=== PATIENT | male | born 1955 | race Two or more races ===

== ENCOUNTER 2024-06-03 21:17 | Inpatient (IN) | payer MEDICARE, OTHER ==
[~2024-06-03] VITALS: Ht 170.2 cm; Wt 68.9 kg
[~2024-06-03 21:17] MED LIST: ACET325T53 PO; ALBU2.5V7 NEB; AMLO-212 PO; ASCO500C18 PO; CLOP75TA15 PO; DOCU-141 PO; FOLI1TAB94 PO; HYDR-3972 PO; HYDR-894 PO; MAGN400C PO; MELA3CAP2 PO; MULT-1045 PO; NUT.237L36 PO; PANT40TA49 PO; POLY17PO4 PO; PRED-170 PO; SITA50TA PO; TACR0.5C PO
[2024-06-03 21:55] LABS: BASOPHILS # (AUTO) 0.1 K/UL (0.0-0.2); BASOPHILS % (AUTO) 0.9 % (0.0-2.0); EOSINOPHILS # (AUTO) 0.1 K/uL (0.0-0.7); EOSINOPHILS % (AUTO) 0.7 % (0.0-7.0); HEMATOCRIT 32.5 % (36.7-47.1); HEMOGLOBIN 10.5 g/dL (12.5-16.3); LYMPHOCYTES # (AUTO) 0.5 K/uL (0.8-4.8); LYMPHOCYTES % (AUTO) 3.3 % (20.5-51.5); MEAN CORPUSCULAR HEMOGLOBIN 29.5 uug (23.8-33.4); MEAN CORPUSCULAR HGB CONC 32 g/dL (32.5-36.3); MEAN CORPUSCULAR VOLUME 91.2 fL (73.0-96.2); MONOCYTES # (AUTO) 0.3 K/uL (0.1-1.30); NEUTROPHILS # (AUTO) 14.2 K/uL (1.8-8.9); NEUTROPHILS % (AUTO) 93.1 % (38.5-71.5); PLATELET COUNT (AUTO) 123 K/uL (152-348); RED BLOOD CELL COUNT(AUTO) 3.56 MIL/uL (4.06-5.63); WHITE BLOOD COUNT (AUTO) 15.2 K/uL (3.6-10.2)
[2024-06-03 22:04] LABS: DIFFERENTIAL COMMENT 1
[2024-06-03 22:11] LABS: LACTIC ACID 2.1 mmol/L (0.4-2.0)
[2024-06-03 22:12] LABS: ALANINE AMINOTRANSFERASE 12 U/L (16-63); ALBUMIN 2.7 g/dL (3.4-5.0); ALKALINE PHOSPHATASE 39 U/L (50-136); ASPARTATE AMINOTRANSFERASE 8 U/L (15-37); BILIRUBIN,DIRECT 0.3 mg/dL (0.0-0.2); BILIRUBIN,TOTAL 0.5 mg/dL (0.2-1.0); CALCIUM 8.7 mg/dL (8.5-10.1); CARBON DIOXIDE 23 mmol/L (21-32); CHLORIDE 102 mmol/L (98-107); CREATININE 4.6 mg/dL (0.6-1.3); GLUCOSE 215 mg/dL (74-106); POTASSIUM 4.9 mmol/L (3.5-5.1); SODIUM SERUM 138 mmol/L (136-145); TOTAL PROTEIN, SERUM 5.6 g/dL (6.4-8.2); UREA NITROGEN, BLOOD 79 mg/dL (7-18)
[2024-06-03] MEDS ORDERED: PIPERACILLIN/TAZOBACTAM/D5W 50 ML IV ONE (22:44)
[2024-06-03] MEDS: PIPERACILLIN SODIUM/TAZOBACTAM 3.375 G in IV DEXTROSE 5% 50 ML IV ONE (22:48)
[2024-06-03] MEDS: IV NS 1000 ML 1,000 ML IV ONE ×2 (22:48→23:41)
[2024-06-04 01:36] LABS: *BILIRUBIN,URIN NEGATIVE (NEGATIVE); *BLOOD, URINE NEGATIVE (NEGATIVE); *CLARITY,URINE CLEAR (CLEAR); *COLOR,URINE YELLOW (YELLOW); *KETONES,URINE NEGATIVE (NEGATIVE); *PROTEIN,URINE 1+ (NEGATIVE); *UROBILINOGEN,URINE 0.2 E.U./dl (NORMAL); LEUKOCYTE ESTERASE ,URINE NEGATIVE (NEGATIVE); NITRITE, URINE NEGATIVE (NEGATIVE); PH,URINE 5.5 (5.0-8.0); UGLUCOSE TRACE (NEGATIVE)
[2024-06-04 02:12] LABS: BACTERIA,URINE NONE SEEN /HPF (NONE SEEN); RBC,URINE NONE SEEN /HPF (0-3); SQUAMOUS EPITHELIAL CELL,UR NONE SEEN /HPF (NONE SEEN); WBC,URINE NONE SEEN /HPF (0-3)
[2024-06-04 02:13] LABS: MUCUS,URINE MANY /LPF (0-FEW)
[2024-06-04 04:22] VITALS: BP 91/48; TEMP 97.6; O2SAT 96
[2024-06-04] MEDS ORDERED: ACETAMINOPHEN 325 MG TABLET PO PRN (05:15)
[2024-06-04] MEDS ORDERED: NITROGLYCERIN OINT 1 GM PACKET TP PRN (05:15)
[2024-06-04] MEDS ORDERED: ENOXAPARIN SODIUM 40 MG/0.4 ML DISP.SYRIN SQ SCH (05:15)
[2024-06-04] MEDS ORDERED: MAGNESIUM HYDROXIDE 30 ML LIQUID UDC PO PRN (05:15)
[2024-06-04] MEDS ORDERED: REMEDY ESSENTIAL ZINC PASTE 113 GM TP PRN (05:15)
[2024-06-04] MEDS ORDERED: ONDANSETRON 4 MG/2 ML VIAL IV PRN (05:15)
[2024-06-04] MEDS ORDERED: PIPERACILLIN SODIUM/TAZOBACTAM 3.375 G in IV DEXTROSE 5% 50 ML IV SCH (06:00)
[2024-06-04] MEDS: PANTOPRAZOLE SODIUM 40 MG TABLET.DR PO SCH (06:21)
[2024-06-04] MEDS: HYDROCODONE/APAP 5-325MG TABLET PO PRN (06:26)
[2024-06-04 07:59] LABS: BASOPHILS % (AUTO) 0.2 % (0.0-2.0); EOSINOPHILS # (AUTO) 0.1 K/uL (0.0-0.7); EOSINOPHILS % (AUTO) 0.5 % (0.0-7.0); HEMATOCRIT 30.9 % (36.7-47.1); HEMOGLOBIN 9.8 g/dL (12.5-16.3); LYMPHOCYTES # (AUTO) 1.8 K/uL (0.8-4.8); LYMPHOCYTES % (AUTO) 12.6 % (20.5-51.5); MEAN CORPUSCULAR HEMOGLOBIN 29.5 uug (23.8-33.4); MEAN CORPUSCULAR HGB CONC 32 g/dL (32.5-36.3); MEAN CORPUSCULAR VOLUME 93.3 fL (73.0-96.2); MONOCYTES # (AUTO) 1.1 K/uL (0.1-1.30); MONOCYTES % (AUTO) 8.1 % (0.0-11.0); NEUTROPHILS # (AUTO) 11.1 K/uL (1.8-8.9); NEUTROPHILS % (AUTO) 78.6 % (38.5-71.5); PLATELET COUNT (AUTO) 103 K/uL (152-348); RED BLOOD CELL COUNT(AUTO) 3.32 MIL/uL (4.06-5.63); RED CELL DISTRIBUTION WIDTH 19.3 % (12.1-16.2); WHITE BLOOD COUNT (AUTO) 14.1 K/uL (3.6-10.2)
[2024-06-04 08:00] VITALS: BP 138/86; TEMP 97.5; O2SAT 96
[2024-06-04 08:06] LABS: DIFFERENTIAL COMMENT 1
[2024-06-04 08:18] LABS: ALBUMIN 2.5 g/dL (3.4-5.0); BILIRUBIN,DIRECT 0.2 mg/dL (0.0-0.2); BILIRUBIN,TOTAL 0.4 mg/dL (0.2-1.0); CALCIUM 8.5 mg/dL (8.5-10.1); CREATININE 4.3 mg/dL (0.6-1.3); MAGNESIUM 2.5 mg/dL (1.8-2.4); PHOSPHOROUS 5.4 mg/dL (2.5-4.9); POTASSIUM 5.1 mmol/L (3.5-5.1); TOTAL PROTEIN, SERUM 5.4 g/dL (6.4-8.2)
[2024-06-04 08:24] LABS: THYROID STIMULATING HORMONE 1.071 mIU/mL (0.358-3.740)
[2024-06-04] MEDS: PIPERACILLIN/TAZO 2.25 G in IV DEXTROSE 5% 50 ML IV SCH (08:36)
[2024-06-04] MEDS ORDERED: BISACODYL 10 MG SUPP.RECT RC ONE (10:45)
[2024-06-04] MEDS: BISACODYL 10 MG SUPP.RECT RC ONE (11:28)
[2024-06-04 12:00] VITALS: BP_SYST 97; BP_SYST 98; BP_DIAS 46; BP_DIAS 56; TEMP 97.5; O2SAT 96
[2024-06-04] MEDS: SORBITOL 70% SOLUTION 30 ML UDC PO STA (13:25)
[2024-06-04] MEDS: HEPARIN SODIUM,PORCINE 5,000 UNITS/ML VIAL SQ SCH (14:21)
[2024-06-04 15:20] LABS: CALCIUM 8.6 mg/dL (8.5-10.1); POTASSIUM 5.1 mmol/L (3.5-5.1)
[2024-06-04] MEDS: IV NS 1000 ML 1,000 ML IV SCH (15:23)
[2024-06-04 16:09] VITALS: BP 101/46; TEMP 98.2; O2SAT 97
[2024-06-04] MEDS ORDERED: ALBUTEROL SULFATE 2.5 MG/3 ML NEBU NEB PRN (17:30)
[2024-06-04] MEDS ORDERED: DEXTROSE 50% 50 ML DISP.SYRIN IV PRN (17:30)
[2024-06-04] MEDS ORDERED: hydrALAZINE HCL 25 MG TABLET PO PRN (17:30)
[2024-06-04] MEDS ORDERED: HYDROCODONE/APAP 5-325MG TABLET PO PRN (17:30)
[2024-06-04] MEDS: TACROLIMUS ANHYDROUS 0.5 MG CAPSULE PO SCH (18:09)
[2024-06-04 20:00] VITALS: BP 96/42; TEMP 98.4; O2SAT 95
[2024-06-04] MEDS: AMLODIPINE 5 MG TABLET PO ONE (21:34)
[2024-06-04] MEDS: BLOOD SUGAR DIAGNOSTIC 1 EACH STRIP VI SCH (21:37)
[2024-06-04] MEDS: INSULIN REGULAR, HUMAN 300 UNIT/3 ML VIAL SQ PRN (21:42)
[2024-06-04] MEDS ORDERED: hydrALAZINE HCL 25 MG TABLET PO SCH (22:00)
[2024-06-05 00:12] VITALS: BP 131/53; TEMP 98; O2SAT 95
[2024-06-05 04:00] VITALS: BP 136/56; TEMP 98.3; O2SAT 94
[2024-06-05] MEDS: PANTOPRAZOLE SODIUM 40 MG TABLET.DR PO SCH (06:16)
[2024-06-05] MEDS: IV NS 1000 ML 1,000 ML IV PRN (08:30)
[2024-06-05] MEDS: CLOPIDOGREL 75 MG TABLET PO SCH (08:56)
[2024-06-05 10:28] LABS: BASOPHILS % (AUTO) 0.4 % (0.0-2.0); EOSINOPHILS # (AUTO) 0.1 K/uL (0.0-0.7); EOSINOPHILS % (AUTO) 1.3 % (0.0-7.0); HEMATOCRIT 35.6 % (36.7-47.1); HEMOGLOBIN 11.4 g/dL (12.5-16.3); LYMPHOCYTES % (AUTO) 11.1 % (20.5-51.5); MEAN CORPUSCULAR HEMOGLOBIN 29.3 uug (23.8-33.4); MEAN CORPUSCULAR HGB CONC 32 g/dL (32.5-36.3); MEAN CORPUSCULAR VOLUME 91.7 fL (73.0-96.2); MONOCYTES # (AUTO) 0.6 K/uL (0.1-1.30); MONOCYTES % (AUTO) 7.2 % (0.0-11.0); NEUTROPHILS # (AUTO) 6.9 K/uL (1.8-8.9); PLATELET COUNT (AUTO) 112 K/uL (152-348); RED BLOOD CELL COUNT(AUTO) 3.88 MIL/uL (4.06-5.63); RED CELL DISTRIBUTION WIDTH 19.2 % (12.1-16.2); WHITE BLOOD COUNT (AUTO) 8.7 K/uL (3.6-10.2)
[2024-06-05 10:31] LABS: DIFFERENTIAL COMMENT 1
[2024-06-05 10:45] LABS: ALBUMIN 2.5 g/dL (3.4-5.0); BILIRUBIN,TOTAL 0.5 mg/dL (0.2-1.0); CALCIUM 8.4 mg/dL (8.5-10.1); CREATININE 2.6 mg/dL (0.6-1.3); MAGNESIUM 2.2 mg/dL (1.8-2.4); PHOSPHOROUS 2.6 mg/dL (2.5-4.9); POTASSIUM 4.9 mmol/L (3.5-5.1); TOTAL PROTEIN, SERUM 5.7 g/dL (6.4-8.2)
[2024-06-05] MEDS ORDERED: INSU3INS6 SQ (11:39)
[2024-06-05] MEDS ORDERED: ISOS30TA86 PO (11:39)
[2024-06-05] MEDS ORDERED: TACR1TAB PO (11:39)
[2024-06-05] MEDS ORDERED: INSU100V39 SQ (11:39)
[2024-06-05] MEDS ORDERED: MYCO500T PO (11:39)
[2024-06-05 12:00] VITALS: BP 101/56; TEMP 98.2; O2SAT 98
[2024-06-05] MEDS: predniSONE 5 MG TABLET PO SCH (12:38)
[2024-06-05] MEDS: MYCOPHENOLATE MOFETIL 250 MG CAPSULE PO SCH (12:41)
[2024-06-05] MEDS: AMLODIPINE 5 MG TABLET PO SCH (12:41)
[2024-06-05] MEDS: TACROLIMUS ANHYDROUS 0.5 MG CAPSULE PO SCH (20:35)
[2024-06-05 20:44] VITALS: BP 113/55; TEMP 98.7; O2SAT 98
[2024-06-06] VITALS (8 sets, daily range): BP systolic 102–158; BP diastolic 34–82; TEMP 97.6–98.9; O2SAT 95–100
[2024-06-06 06:36] LABS: BASOPHILS % (AUTO) 0.7 % (0.0-2.0); EOSINOPHILS # (AUTO) 0.1 K/uL (0.0-0.7); EOSINOPHILS % (AUTO) 1.2 % (0.0-7.0); HEMATOCRIT 33.3 % (36.7-47.1); HEMOGLOBIN 10.6 g/dL (12.5-16.3); LYMPHOCYTES % (AUTO) 14.7 % (20.5-51.5); MEAN CORPUSCULAR HEMOGLOBIN 29.2 uug (23.8-33.4); MEAN CORPUSCULAR HGB CONC 32 g/dL (32.5-36.3); MEAN CORPUSCULAR VOLUME 91.4 fL (73.0-96.2); MONOCYTES # (AUTO) 0.6 K/uL (0.1-1.30); MONOCYTES % (AUTO) 8.2 % (0.0-11.0); NEUTROPHILS # (AUTO) 5.2 K/uL (1.8-8.9); NEUTROPHILS % (AUTO) 75.2 % (38.5-71.5); PLATELET COUNT (AUTO) 165 K/uL (152-348); RED BLOOD CELL COUNT(AUTO) 3.64 MIL/uL (4.06-5.63); RED CELL DISTRIBUTION WIDTH 18.6 % (12.1-16.2); WHITE BLOOD COUNT (AUTO) 6.9 K/uL (3.6-10.2)
[2024-06-06 06:51] LABS: DIFFERENTIAL COMMENT 1
[2024-06-06 08:26] LABS: CALCIUM 8.1 mg/dL (8.5-10.1); CREATININE 1.9 mg/dL (0.6-1.3); POTASSIUM 4.8 mmol/L (3.5-5.1)
[2024-06-06] MEDS: ISOSORBIDE MONONITRATE 30 MG TAB.SR.24H PO SCH (08:46)
[2024-06-06] MEDS: INSULIN GLARGINE,HUM 300 UNITS/3 ML CARTRIDGE SQ SCH (08:51)
[2024-06-06] MEDS: NEUTRA PHOS PACKET PO ONE (15:30)
[2024-06-06] MEDS: PIPERACILLIN/TAZO 2.25 G in IV DEXTROSE 5% 50 ML IV SCH (17:32)
[2024-06-06] MEDS: ZOLPIDEM 5 MG TABLET PO PRN (23:53)
[2024-06-07 01:10] LABS: PTH, INTACT 27 pg/mL (15-65)
[2024-06-07 05:40] VITALS: BP 134/51; TEMP 98.9; O2SAT 98
[2024-06-07 09:02] LABS: CALCIUM 8.2 mg/dL (8.5-10.1); CREATININE 1.6 mg/dL (0.6-1.3); PHOSPHOROUS 1.7 mg/dL (2.5-4.9); POTASSIUM 5.1 mmol/L (3.5-5.1)
[2024-06-07 11:08] LABS: ALBUMIN 2.5 g/dL (2.9-4.4); ALPHA-1-GLOBULIN 0.3 g/dL (0.0-0.4); ALPHA-2-GLOBULIN 0.8 g/dL (0.4-1.0); BETA GLOBULIN 0.8 g/dL (0.7-1.3); GAMMA GLOBULIN 0.7 g/dL (0.4-1.8); GLOBULIN, TOTAL 2.6 g/dL (2.2-3.9); M-SPIKE Not Observed g/dL (Not Observed)
[2024-06-07 11:43] VITALS: BP 157/69; TEMP 98.2; O2SAT 89
[2024-06-07] MEDS: PIPERACILLIN SODIUM/TAZOBACTAM 3.375 G in IV DEXTROSE 5% 100 ML IV SCH (14:14)
[2024-06-07 15:21] VITALS: BP 154/59; TEMP 98; O2SAT 97
[2024-06-07] MEDS: NEUTRA PHOS PACKET PO ONE (16:44)
[2024-06-07 20:08] VITALS: BP 145/48; TEMP 97.8; O2SAT 98
[2024-06-08 00:04] VITALS: BP 132/48; TEMP 97.9; O2SAT 100
[2024-06-08 06:06] VITALS: BP 158/68; TEMP 97.9; O2SAT 100
[2024-06-08 07:47] VITALS: BP 99/60; TEMP 98.2; O2SAT 98
[2024-06-08 11:39] VITALS: BP 102/54; TEMP 98.5; O2SAT 98
[2024-06-08 15:21] VITALS: BP 110/48; TEMP 98.4; O2SAT 96
[2024-06-08] MEDS ORDERED: PIPE3.379 IV (18:54)
[2024-06-08] MEDS ORDERED: ZOLP5TAB2 PO (18:54)
[2024-06-08] MEDS ORDERED: DEXT50DI8 IV (18:54)
[2024-06-08] MEDS ORDERED: Blood Sugar Diagnostic VI (18:54)
[2024-06-08] MEDS ORDERED: INSU100V28 SQ (18:54)
[2024-06-08 20:28] VITALS: BP 142/57
[2024-06-09] MEDS ORDERED: TACR1CAP2 PO (13:20)
[2024-06-09] MEDS ORDERED: HEPA500034 SQ (13:21)
== END 2024-06-08 20:44 | DRG 871 ==
LOC: ER 21:23 → TELE3 06-04 03:00 → MEDSURG3 06-08 09:23
PROVIDERS: ADMIT Nurse Practitioner Family
PROC: 05HB33Z Insertion of Infusion Device into Right Basilic Vein, Percutaneous Approach (ICD-10-PCS; principal; 2024-06-06)
DX: A41.9 Sepsis, unspecified organism (principal); G92.9 Unspecified toxic encephalopathy; I21.A1 Myocardial infarction type 2; J15.9 Unspecified bacterial pneumonia; N17.0 Acute kidney failure with tubular necrosis; T86.19 Other complication of kidney transplant; N03.9 Chronic nephritic syndrome with unspecified morphologic changes; D84.821 Immunodeficiency due to drugs; E87.21 Acute metabolic acidosis; E87.1 Hypo-osmolality and hyponatremia; I25.10 Atherosclerotic heart disease of native coronary artery without angina pectoris; Z95.1 Presence of aortocoronary bypass graft; Z90.49 Acquired absence of other specified parts of digestive tract; N28.1 Cyst of kidney, acquired; E78.5 Hyperlipidemia, unspecified; E11.22 Type 2 diabetes mellitus with diabetic chronic kidney disease; Z79.4 Long term (current) use of insulin; Z79.621 Long term (current) use of calcineurin inhibitor; D64.9 Anemia, unspecified; Z79.02 Long term (current) use of antithrombotics/antiplatelets; F41.9 Anxiety disorder, unspecified; F32.A Depression, unspecified; F17.211 Nicotine dependence, cigarettes, in remission; M89.8X9 Other specified disorders of bone, unspecified site; I13.10 Hypertensive heart and chronic kidney disease without heart failure, with stage 1 through stage 4 chronic kidney disease, or unspecified chronic kidney disease; N18.9 Chronic kidney disease, unspecified; G89.4 Chronic pain syndrome; R65.20 Severe sepsis without septic shock; Z79.60 Long term (current) use of unspecified immunomodulators and immunosuppressants; Z79.84 Long term (current) use of oral hypoglycemic drugs
CPT/HCPCS: 36415; 71045; 76770; 83605; 83735; 83970; 84100; 84155; 84165; 84443; 84484; 85025; 85730; 87040; 93005; A4663; A6213; G0378; J1644; J1815; J2543; J7040; J7507; J7512; J7517

== ENCOUNTER 2024-06-08 20:45 | Inpatient (IN) | payer MEDICARE, OTHER ==
[~2024-06-08] VITALS: Ht 170.2 cm; Wt 68.0 kg
[~2024-06-08 20:45] MED LIST changes: -ASCO500C18 PO; +Blood Sugar Diagnostic VI; +DEXT50DI8 IV; -DOCU-141 PO; -FOLI1TAB94 PO; +INSU100V28 SQ; +INSU100V39 SQ; +INSU3INS6 SQ; +ISOS30TA86 PO; -MAGN400C PO; +MYCO500T PO; -NUT.237L36 PO; +PIPE3.379 IV; -POLY17PO4 PO; +ZOLP5TAB2 PO
[2024-06-08 22:00] VITALS: BP 142/57; TEMP 97.7; O2SAT 99
[2024-06-09] MEDS ORDERED: DEXTROSE 50% 50 ML DISP.SYRIN IV PRN (00:15)
[2024-06-09] MEDS ORDERED: ALBUTEROL SULFATE 2.5 MG/3 ML NEBU NEB PRN (00:15)
[2024-06-09] MEDS ORDERED: hydrALAZINE HCL 25 MG TABLET PO PRN ×2 (00:15→05:45)
[2024-06-09 05:33] VITALS: BP 155/54; TEMP 98; O2SAT 99
[2024-06-09] MEDS ORDERED: REMEDY ESSENTIAL ZINC PASTE 113 GM TOP PRN (05:45)
[2024-06-09] MEDS: PANTOPRAZOLE SODIUM 40 MG TABLET.DR PO SCH (07:04)
[2024-06-09] MEDS: BLOOD SUGAR DIAGNOSTIC 1 EACH STRIP VI SCH (07:05)
[2024-06-09] MEDS: ISOSORBIDE MONONITRATE 30 MG TAB.SR.24H PO SCH (09:15)
[2024-06-09] MEDS: predniSONE 5 MG TABLET PO SCH (09:16)
[2024-06-09] MEDS: TACROLIMUS ANHYDROUS 0.5 MG CAPSULE PO SCH ×2 (09:16→20:39)
[2024-06-09] MEDS: AMLODIPINE 5 MG TABLET PO SCH (09:16)
[2024-06-09] MEDS: INSULIN GLARGINE,HUM 300 UNITS/3 ML CARTRIDGE SQ SCH (09:24)
[2024-06-09] MEDS: CLOPIDOGREL 75 MG TABLET PO SCH (09:27)
[2024-06-09] MEDS: MYCOPHENOLATE MOFETIL 250 MG CAPSULE PO SCH (09:45)
[2024-06-09] MEDS: INSULIN REGULAR, HUMAN 1000 UNIT/10 ML VIAL SQ PRN (12:01)
[2024-06-09] MEDS ORDERED: TACR1CAP2 PO (13:20)
[2024-06-09] MEDS ORDERED: HEPA500034 SQ (13:21)
[2024-06-09 15:38] VITALS: BP 105/76; TEMP 98.4; O2SAT 99
[2024-06-09 20:22] VITALS: BP 138/46; TEMP 98.8; O2SAT 98
[2024-06-09] MEDS: HEPARIN SODIUM,PORCINE 5,000 UNITS/ML VIAL SQ SCH (20:48)
[2024-06-09] MEDS: INSULIN REGULAR, HUMAN 300 UNITS/3 ML VIAL SQ PRN (20:49)
[2024-06-09] MEDS ORDERED: TACROLIMUS ANHYDROUS 0.5 MG CAPSULE PO SCH (21:00)
[2024-06-09] MEDS ORDERED: PIPERACILLIN SODIUM/TAZOBACTAM 3.375 G in IV DEXTROSE 5% 100 ML IV SCH (22:00)
[2024-06-09] MEDS ORDERED: CEFTRIAXONE 1 G VIAL ONE (22:08)
[2024-06-09] MEDS: CEFTRIAXONE 1 G in IV DEXTROSE 5% 50 ML IV SCH (22:22)
[2024-06-10 06:11] VITALS: BP 148/53; TEMP 97.8; O2SAT 98
[2024-06-10 16:00] VITALS: BP 136/81; TEMP 98.6; O2SAT 99
[2024-06-10 20:30] VITALS: BP 144/45; TEMP 97.9; O2SAT 99
[2024-06-10] MEDS: HYDROCODONE/APAP 5-325MG TABLET PO PRN (20:31)
[2024-06-10] MEDS: ZOLPIDEM 5 MG TABLET PO PRN (22:38)
[2024-06-11 06:32] VITALS: BP 149/54; TEMP 97.7; O2SAT 98
[2024-06-11 16:38] VITALS: BP_SYST 124; BP_SYST 127; BP_DIAS 40; BP_DIAS 52; TEMP 97.8; TEMP 97.9; O2SAT 97; O2SAT 99
[2024-06-11 20:35] VITALS: BP_SYST 106; BP_SYST 132; BP_DIAS 48; BP_DIAS 64; TEMP 97.7; O2SAT 100
[2024-06-12 06:25] VITALS: BP 139/46; TEMP 98.1; O2SAT 97
[2024-06-12 15:09] VITALS: BP 140/49; TEMP 98.2; O2SAT 98
[2024-06-12 20:00] VITALS: BP 120/54; TEMP 97.4; O2SAT 98
[2024-06-13 15:27] VITALS: BP 158/63; TEMP 98.4; O2SAT 100
[2024-06-13 21:16] VITALS: BP 134/48; TEMP 97.6; O2SAT 99
[2024-06-14 12:00] VITALS: BP 134/63; TEMP 98.1; O2SAT 99
== END 2024-06-14 11:45 | disposition home health service (06) | DRG 871 ==
PROVIDERS: ADMIT Physical Medicine & Rehabilitation Pain Medicine; ATTEND Physical Medicine & Rehabilitation Pain Medicine
DX: A41.9 Sepsis, unspecified organism (principal); G92.8 Other toxic encephalopathy; J18.9 Pneumonia, unspecified organism; N17.0 Acute kidney failure with tubular necrosis; I21.A1 Myocardial infarction type 2; T86.19 Other complication of kidney transplant; D68.59 Other primary thrombophilia; E44.0 Moderate protein-calorie malnutrition; I50.22 Chronic systolic (congestive) heart failure; J44.0 Chronic obstructive pulmonary disease with (acute) lower respiratory infection; E87.20 Acidosis, unspecified; D64.9 Anemia, unspecified; E86.9 Volume depletion, unspecified; G89.4 Chronic pain syndrome; I25.10 Atherosclerotic heart disease of native coronary artery without angina pectoris; I12.9 Hypertensive chronic kidney disease with stage 1 through stage 4 chronic kidney disease, or unspecified chronic kidney disease; N18.9 Chronic kidney disease, unspecified; E11.22 Type 2 diabetes mellitus with diabetic chronic kidney disease; Z87.891 Personal history of nicotine dependence; I71.43 Infrarenal abdominal aortic aneurysm, without rupture; K56.41 Fecal impaction; M89.8X9 Other specified disorders of bone, unspecified site; N28.1 Cyst of kidney, acquired; Z79.4 Long term (current) use of insulin; Z95.1 Presence of aortocoronary bypass graft; Z90.49 Acquired absence of other specified parts of digestive tract; Z79.60 Long term (current) use of unspecified immunomodulators and immunosuppressants; R65.20 Severe sepsis without septic shock; Z90.5 Acquired absence of kidney; R53.1 Weakness; E66.3 Overweight; Z68.23 Body mass index [BMI] 23.0-23.9, adult
CPT/HCPCS: 97535-GO-CO; A6213; J0696; J1644; J1815; J2543; J7507; J7512; J7517

== ENCOUNTER 2024-07-19 03:06 | Inpatient (IN) | payer MEDICARE, OTHER ==
[~2024-07-19] VITALS: Ht 172.7 cm; Wt 63.5 kg
[~2024-07-19 03:06] MED LIST changes: +HEPA500034 SQ; -INSU100V39 SQ; -TACR0.5C PO; +TACR1CAP2 PO
[2024-07-19 04:10] LABS: BASOPHILS % (AUTO) 0.4 % (0.0-2.0); EOSINOPHILS % (AUTO) 0.2 % (0.0-7.0); HEMATOCRIT 36.3 % (36.7-47.1); HEMOGLOBIN 11.6 g/dL (12.5-16.3); LYMPHOCYTES # (AUTO) 1.2 K/uL (0.8-4.8); LYMPHOCYTES % (AUTO) 10.2 % (20.5-51.5); MEAN CORPUSCULAR HEMOGLOBIN 27.9 uug (23.8-33.4); MEAN CORPUSCULAR HGB CONC 32 g/dL (32.5-36.3); MEAN CORPUSCULAR VOLUME 87.2 fL (73.0-96.2); MONOCYTES # (AUTO) 1.5 K/uL (0.1-1.30); MONOCYTES % (AUTO) 12.9 % (0.0-11.0); NEUTROPHILS # (AUTO) 8.8 K/uL (1.8-8.9); NEUTROPHILS % (AUTO) 76.3 % (38.5-71.5); PLATELET COUNT (AUTO) 177 K/uL (152-348); RED BLOOD CELL COUNT(AUTO) 4.16 MIL/uL (4.06-5.63); RED CELL DISTRIBUTION WIDTH 19.4 % (12.1-16.2); WHITE BLOOD COUNT (AUTO) 11.6 K/uL (3.6-10.2)
[2024-07-19] MEDS: IV NORMAL SALINE 500 ML IV ONE (04:11)
[2024-07-19 04:12] LABS: DIFFERENTIAL COMMENT 1
[2024-07-19] MEDS ORDERED: CEFEPIME HCL 1 G VIAL ONE (04:14)
[2024-07-19] MEDS: CEFEPIME HCL 2 G in IV DEXTROSE 5% 100 ML IV ONE (04:17)
[2024-07-19 04:45] LABS: BILIRUBIN,TOTAL 0.7 mg/dL (0.2-1.0)
[2024-07-19 04:47] LABS: ALBUMIN 3.1 g/dL (3.4-5.0); C-REACTIVE PROTEIN 18.12 mg/dL (0.00-0.30); CALCIUM 10.4 mg/dL (8.5-10.1); CREATININE 2.3 mg/dL (0.6-1.3); MAGNESIUM 2.5 mg/dL (1.8-2.4); POTASSIUM 4.5 mmol/L (3.5-5.1); TOTAL PROTEIN, SERUM 7.3 g/dL (6.4-8.2)
[2024-07-19] MEDS ORDERED: REMEDY ESSENTIAL ZINC PASTE 113 GM TP PRN (06:00)
[2024-07-19] MEDS ORDERED: ACETAMINOPHEN 325 MG TABLET PO PRN (06:00)
[2024-07-19] MEDS ORDERED: ONDANSETRON 4 MG/2 ML VIAL IV PRN (06:00)
[2024-07-19] MEDS ORDERED: MAGNESIUM HYDROXIDE 30 ML LIQUID UDC PO PRN (06:00)
[2024-07-19] MEDS ORDERED: IV NS 1000 ML 1,000 ML IV PRN (06:00)
[2024-07-19] MEDS: LORAZEPAM 2 MG/1 ML VIAL IV ONE (07:00)
[2024-07-19] MEDS ORDERED: INSULIN REGULAR, HUMAN 1000 UNIT/10 ML VIAL SQ SCH (07:30)
[2024-07-19] MEDS ORDERED: BLOOD SUGAR DIAGNOSTIC 1 EACH STRIP VI SCH (07:30)
[2024-07-19] MEDS ORDERED: DEXTROSE 50% 50 ML DISP.SYRIN IV PRN (07:30)
[2024-07-19] MEDS: BLOOD SUGAR DIAGNOSTIC 1 EACH STRIP VI SCH (07:30)
[2024-07-19 08:00] VITALS: BP 152/62; TEMP 98.6; O2SAT 95
[2024-07-19] MEDS: PANTOPRAZOLE SODIUM 40 MG TABLET.DR PO SCH (08:41)
[2024-07-19] MEDS ORDERED: AMLO10TA4 PO (10:37)
[2024-07-19] MEDS ORDERED: RIVA2.5T PO (10:43)
[2024-07-19] MEDS ORDERED: LANS30CA56 PO (10:50)
[2024-07-19] MEDS ORDERED: ZOLP10TA2 PO (10:51)
[2024-07-19] MEDS ORDERED: SITA100T PO (10:52)
[2024-07-19] MEDS ORDERED: SODI5POW2 PO (10:54)
[2024-07-19] MEDS ORDERED: ALLO100T56 PO (10:56)
[2024-07-19] MEDS ORDERED: ALBU8HFA4 INH (10:58)
[2024-07-19] MEDS ORDERED: SEMA0.25 SQ (11:00)
[2024-07-19] MEDS ORDERED: PREG75CA PO (11:01)
[2024-07-19] MEDS ORDERED: EMPA10TA PO (11:03)
[2024-07-19] MEDS ORDERED: PRAZ2CAP2 PO (11:04)
[2024-07-19] MEDS ORDERED: ROSU5TAB PO (11:05)
[2024-07-19] MEDS ORDERED: FENO135C PO (11:07)
[2024-07-19] MEDS ORDERED: FOLI1TAB94 PO (11:14)
[2024-07-19] MEDS ORDERED: CARV6.25 PO (11:16)
[2024-07-19] MEDS ORDERED: BIMA2.5D5 EACHEYE (11:19)
[2024-07-19 11:36] VITALS: BP 106/64; TEMP 98.8; O2SAT 93
[2024-07-19] MEDS ORDERED: FOLI1TAB27 PO (12:39)
[2024-07-19] MEDS: INSULIN REGULAR, HUMAN 1000 UNIT/10 ML VIAL SQ PRN (13:38)
[2024-07-19] MEDS ORDERED: TACROLIMUS ANHYDROUS PO SCH (15:15)
[2024-07-19 15:49] VITALS: BP 150/69; TEMP 99.3; O2SAT 95
[2024-07-19] MEDS ORDERED: Medication Not On Formulary EA (Mycophenolate Mofetil (Cellcept) 500 MG) PO SCH (17:00)
[2024-07-19] MEDS ORDERED: PRAZOSIN HCL 1 MG CAPSULE PO SCH (18:15)
[2024-07-19 20:00] VITALS: BP 112/59; TEMP 98.1; O2SAT 86
[2024-07-19 20:30] VITALS: O2SAT 95
[2024-07-19] MEDS: LATANOPROST OPHT DROP 2.5 ML BOTTLE EACHEYE SCH (20:58)
[2024-07-19] MEDS: ZOLPIDEM 5 MG TABLET PO SCH (20:59)
[2024-07-19] MEDS: MYCOPHENOLATE MOFETIL 250 MG CAPSULE PO SCH (20:59)
[2024-07-19] MEDS ORDERED: Medication Not On Formulary EA (Pregabalin (Lyrica) 75 MG) PO SCH (21:00)
[2024-07-19] MEDS: TACROLIMUS ANHYDROUS 0.5 MG CAPSULE PO SCH (21:00)
[2024-07-19] MEDS ORDERED: BIMATOPROST 0.01% OPHT DROP 2.5 ML BOTTLE EACHEYE SCH (21:00)
[2024-07-19] MEDS: PREGABALIN 25 MG CAPSULE PO SCH (21:00)
[2024-07-19] MEDS ORDERED: Medication Not On Formulary EA (Zolpidem Tartrate (Ambien) 10 MG) PO SCH (21:00)
[2024-07-19] MEDS: CARVEDILOL 6.25 MG TABLET PO SCH (21:07)
[2024-07-19] MEDS: PRAZOSIN HCL 1 MG CAPSULE PO SCH (21:29)
[2024-07-19] MEDS ORDERED: METRONIDAZOLE 500 MG/NS 100ML 100 ML IV ONE ×2 (23:13→23:14)
[2024-07-19] MEDS: METRONIDAZOLE 500 MG/NS 100ML 500 MG in PREMIXED 1 EACH IV SCH (23:24)
[2024-07-20 04:12] VITALS: O2SAT 96
[2024-07-20] MEDS: CEFEPIME HCL 2 GM in IV DEXTROSE 5% 100 ML IV SCH (05:29)
[2024-07-20 06:00] VITALS: BP 140/67; TEMP 97.8; O2SAT 98
[2024-07-20] MEDS: predniSONE 5 MG TABLET PO SCH (08:59)
[2024-07-20] MEDS: ISOSORBIDE MONONITRATE 30 MG TAB.SR.24H PO SCH (08:59)
[2024-07-20] MEDS: ALLOPURINOL 100 MG TABLET PO SCH (08:59)
[2024-07-20] MEDS: CLOPIDOGREL 75 MG TABLET PO SCH (08:59)
[2024-07-20] MEDS: AMLODIPINE 10 MG TABLET PO SCH (08:59)
[2024-07-20] MEDS ORDERED: Medication Not On Formulary EA (Empagliflozin (Jardiance) 10 MG) PO SCH (09:00)
[2024-07-20] MEDS ORDERED: Medication Not On Formulary EA (Rivaroxaban (Xarelto) 2.5 MG) PO SCH (09:00)
[2024-07-20] MEDS: METRONIDAZOLE 500 MG/NS 100ML 500 MG in PREMIXED 1 EACH IV SCH (09:01)
[2024-07-20] MEDS: SODIUM ZIRCONIUM CYCLOSILICATE 5 GM POWD.PACK PO SCH (09:02)
[2024-07-20] MEDS: EMPAGLIFLOZIN 10 MG TABLET PO SCH (09:03)
[2024-07-20] MEDS: INSULIN GLARGINE,HUM 300 UNITS/3 ML CARTRIDGE SQ SCH (09:20)
[2024-07-20 11:25] VITALS: BP 130/60; TEMP 96.8; O2SAT 93
[2024-07-20 13:25] LABS: EOSINOPHILS # (AUTO) 0.3 K/uL (0.0-0.7); EOSINOPHILS % (AUTO) 4.5 % (0.0-7.0); HEMATOCRIT 36.7 % (36.7-47.1); HEMOGLOBIN 11.7 g/dL (12.5-16.3); LYMPHOCYTES # (AUTO) 0.2 K/uL (0.8-4.8); LYMPHOCYTES % (AUTO) 2.3 % (20.5-51.5); MEAN CORPUSCULAR HEMOGLOBIN 27.7 uug (23.8-33.4); MEAN CORPUSCULAR HGB CONC 32 g/dL (32.5-36.3); MONOCYTES # (AUTO) 0.1 K/uL (0.1-1.30); MONOCYTES % (AUTO) 0.9 % (0.0-11.0); NEUTROPHILS # (AUTO) 6.1 K/uL (1.8-8.9); NEUTROPHILS % (AUTO) 92.3 % (38.5-71.5); PLATELET COUNT (AUTO) 144 K/uL (152-348); RED BLOOD CELL COUNT(AUTO) 4.22 MIL/uL (4.06-5.63); RED CELL DISTRIBUTION WIDTH 19.2 % (12.1-16.2); WHITE BLOOD COUNT (AUTO) 6.6 K/uL (3.6-10.2)
[2024-07-20 13:26] LABS: DIFFERENTIAL COMMENT 1
[2024-07-20 13:36] LABS: ALBUMIN 2.5 g/dL (3.4-5.0); BILIRUBIN,TOTAL 0.5 mg/dL (0.2-1.0); CALCIUM 9.9 mg/dL (8.5-10.1); CREATININE 1.6 mg/dL (0.6-1.3); MAGNESIUM 2.2 mg/dL (1.8-2.4); PHOSPHOROUS 3.1 mg/dL (2.5-4.9); POTASSIUM 4.5 mmol/L (3.5-5.1); TOTAL PROTEIN, SERUM 6.7 g/dL (6.4-8.2)
[2024-07-20 14:00] LABS: THYROID STIMULATING HORMONE 1.404 mIU/mL (0.358-3.740)
[2024-07-20 15:00] VITALS: BP 126/61; TEMP 97.4; O2SAT 95
[2024-07-20 20:00] VITALS: BP 165/81; TEMP 98.3; O2SAT 97
[2024-07-20 22:11] LABS: *OCCULT BLOOD STOOL NEGATIVE (NEGATIVE)
[2024-07-20 22:40] VITALS: O2SAT 97
[2024-07-20] MEDS: IV 1/2NS 1000 ML 1,000 ML IV PRN (22:43)
[2024-07-21 04:47] LABS: *BILIRUBIN,URIN NEGATIVE (NEGATIVE); *BLOOD, URINE NEGATIVE (NEGATIVE); *CLARITY,URINE CLEAR (CLEAR); *COLOR,URINE YELLOW (YELLOW); *KETONES,URINE NEGATIVE (NEGATIVE); *PROTEIN,URINE NEGATIVE (NEGATIVE); *UROBILINOGEN,URINE 0.2 E.U./dl (NORMAL); LEUKOCYTE ESTERASE ,URINE NEGATIVE (NEGATIVE); NITRITE, URINE NEGATIVE (NEGATIVE); UGLUCOSE 2+ (NEGATIVE)
[2024-07-21 04:54] LABS: *CREATININE,URINE 116.2 mg/dL (30-125); *URINE TOTAL PROTEIN RANDOM 26.5 mg/dL (<150/24HR)
[2024-07-21 04:57] LABS: RBC,URINE 0-3 /HPF (0-3); SQUAMOUS EPITHELIAL CELL,UR FEW /HPF (NONE SEEN); WBC,URINE 0-3 /HPF (0-3)
[2024-07-21 05:17] LABS: BACTERIA,URINE NONE SEEN /HPF (NONE SEEN)
[2024-07-21 06:09] VITALS: BP 134/69; TEMP 98; O2SAT 95
[2024-07-21 08:06] LABS: PTH, INTACT 9 pg/mL (15-65)
[2024-07-21 08:11] LABS: BASOPHILS % (AUTO) 0.2 % (0.0-2.0); EOSINOPHILS # (AUTO) 0.1 K/uL (0.0-0.7); EOSINOPHILS % (AUTO) 1.3 % (0.0-7.0); HEMATOCRIT 30.8 % (36.7-47.1); HEMOGLOBIN 10.2 g/dL (12.5-16.3); LYMPHOCYTES # (AUTO) 1.1 K/uL (0.8-4.8); LYMPHOCYTES % (AUTO) 16.4 % (20.5-51.5); MEAN CORPUSCULAR HEMOGLOBIN 28.2 uug (23.8-33.4); MEAN CORPUSCULAR HGB CONC 33 g/dL (32.5-36.3); MEAN CORPUSCULAR VOLUME 85.1 fL (73.0-96.2); MONOCYTES # (AUTO) 0.7 K/uL (0.1-1.30); NEUTROPHILS # (AUTO) 4.8 K/uL (1.8-8.9); NEUTROPHILS % (AUTO) 71.1 % (38.5-71.5); PLATELET COUNT (AUTO) 148 K/uL (152-348); RED BLOOD CELL COUNT(AUTO) 3.62 MIL/uL (4.06-5.63); RED CELL DISTRIBUTION WIDTH 19.3 % (12.1-16.2); WHITE BLOOD COUNT (AUTO) 6.7 K/uL (3.6-10.2)
[2024-07-21 08:22] LABS: CALCIUM 9.4 mg/dL (8.5-10.1); CREATININE 1.6 mg/dL (0.6-1.3); MAGNESIUM 1.2 mg/dL (1.8-2.4); PHOSPHOROUS 2.4 mg/dL (2.5-4.9); POTASSIUM 4.5 mmol/L (3.5-5.1)
[2024-07-21 08:25] LABS: DIFFERENTIAL COMMENT 1
[2024-07-21] MEDS ORDERED: FENOFIBRIC ACID 135 MG PO SCH (09:00)
[2024-07-21 11:14] VITALS: BP 144/65; TEMP 97.6; O2SAT 96
[2024-07-21] MEDS: MAGNESIUM OXIDE 400 MG TABLET PO SCH (14:51)
[2024-07-21 16:00] VITALS: O2SAT 97
[2024-07-21 16:08] VITALS: O2SAT 96
[2024-07-21] MEDS: NEUTRA PHOS PACKET PO ONE (16:17)
[2024-07-21 16:22] VITALS: BP 133/65; TEMP 98.4; O2SAT 96
[2024-07-21] MEDS: RIVAROXABAN 10 MG TABLET PO SCH (16:22)
[2024-07-21 19:00] VITALS: BP 131/49; TEMP 97.2; O2SAT 99
[2024-07-22 05:32] VITALS: BP 157/65; TEMP 98.3; O2SAT 97
[2024-07-22] MEDS: FENOFIBRATE NANOCRYSTALLIZED 145 MG TABLET PO SCH (08:56)
[2024-07-22 10:06] LABS: A/G RATIO 0.8 (0.7-1.7); ALBUMIN 2.7 g/dL (2.9-4.4); ALPHA-1-GLOBULIN 0.4 g/dL (0.0-0.4); ALPHA-2-GLOBULIN 0.9 g/dL (0.4-1.0); BETA GLOBULIN 1.2 g/dL (0.7-1.3); GAMMA GLOBULIN 0.9 g/dL (0.4-1.8); GLOBULIN, TOTAL 3.5 g/dL (2.2-3.9); M-SPIKE Not Observed g/dL (Not Observed)
[2024-07-22] MEDS: HYDROCODONE/APAP 5-325MG TABLET PO PRN (10:59)
[2024-07-22 11:47] VITALS: BP 111/66; TEMP 97.9; O2SAT 97
[2024-07-22 13:45] VITALS: O2SAT 97
[2024-07-22 13:49] LABS: CALCIUM 9.1 mg/dL (8.5-10.1); CREATININE 1.5 mg/dL (0.6-1.3); PHOSPHOROUS 2.2 mg/dL (2.5-4.9)
[2024-07-22 15:52] VITALS: BP 118/57; TEMP 98.3; O2SAT 97
[2024-07-22 16:35] VITALS: O2SAT 99
[2024-07-22] MEDS: ALBUTEROL SULFATE 1.25 MG/3 ML NEBU NEB PRN (16:56)
[2024-07-22] MEDS: NEUTRA PHOS PACKET PO ONE (17:28)
[2024-07-22 19:56] VITALS: BP 129/61; TEMP 98.3; O2SAT 97
[2024-07-22] MEDS: GUAIFENESIN/DEXTROMETHORPHAN 5 ML UDC PO PRN (20:20)
[2024-07-22] MEDS ORDERED: CEFEPIME HCL 1 G VIAL ONE (20:47)
[2024-07-22] MEDS: CEFEPIME HCL 1 G in IV DEXTROSE 5% 50 ML IV SCH (20:56)
[2024-07-23 05:17] VITALS: BP 149/71; TEMP 98; O2SAT 98
[2024-07-23 06:35] LABS: URIC ACID 5.4 mg/dL (3.5-7.2)
[2024-07-23 06:42] LABS: BASOPHILS % (AUTO) 0.6 % (0.0-2.0); EOSINOPHILS # (AUTO) 0.1 K/uL (0.0-0.7); EOSINOPHILS % (AUTO) 2.7 % (0.0-7.0); HEMATOCRIT 30.9 % (36.7-47.1); HEMOGLOBIN 10.3 g/dL (12.5-16.3); LYMPHOCYTES # (AUTO) 1.5 K/uL (0.8-4.8); LYMPHOCYTES % (AUTO) 28.3 % (20.5-51.5); MEAN CORPUSCULAR HEMOGLOBIN 28.4 uug (23.8-33.4); MEAN CORPUSCULAR HGB CONC 34 g/dL (32.5-36.3); MEAN CORPUSCULAR VOLUME 84.9 fL (73.0-96.2); MONOCYTES # (AUTO) 0.5 K/uL (0.1-1.30); MONOCYTES % (AUTO) 10.2 % (0.0-11.0); NEUTROPHILS % (AUTO) 58.2 % (38.5-71.5); PLATELET COUNT (AUTO) 180 K/uL (152-348); RED BLOOD CELL COUNT(AUTO) 3.64 MIL/uL (4.06-5.63); RED CELL DISTRIBUTION WIDTH 19.2 % (12.1-16.2); WHITE BLOOD COUNT (AUTO) 5.1 K/uL (3.6-10.2)
[2024-07-23 06:57] LABS: DIFFERENTIAL COMMENT 1
[2024-07-23 07:23] LABS: ALBUMIN 2.4 g/dL (3.4-5.0); BILIRUBIN,TOTAL 0.4 mg/dL (0.2-1.0); CALCIUM 9.3 mg/dL (8.5-10.1); CREATININE 1.3 mg/dL (0.6-1.3); MAGNESIUM 1.5 mg/dL (1.8-2.4); PHOSPHOROUS 2.7 mg/dL (2.5-4.9); POTASSIUM 5.4 mmol/L (3.5-5.1); TOTAL PROTEIN, SERUM 6.1 g/dL (6.4-8.2)
[2024-07-23 08:00] VITALS: BP 165/78; TEMP 98.1; O2SAT 97
[2024-07-23] MEDS: CEFEPIME HCL 1 G in IV DEXTROSE 5% 50 ML IV SCH (09:03)
[2024-07-23] MEDS: SODIUM ZIRCONIUM CYCLOSILICATE 10 GM POWD.PACK PO ONE (11:10)
[2024-07-23] MEDS: MAGNESIUM OXIDE 400 MG TABLET PO ONE (11:10)
[2024-07-23 12:07] VITALS: BP 133/68; TEMP 97.6
[2024-07-23] MEDS ORDERED: ALBU1.25 NEB (15:28)
[2024-07-23] MEDS ORDERED: PRAZ1CAP2 PO (15:28)
[2024-07-23] MEDS ORDERED: CEFE1VIA3 IV (15:28)
[2024-07-23] MEDS ORDERED: GUAI5SYR PO (15:28)
[2024-07-23 16:01] VITALS: BP 140/66; TEMP 98; O2SAT 97
== END 2024-07-23 16:48 | DRG 871 ==
LOC: ER 03:14 → MEDSURG3 07:13
PROVIDERS: ADMIT Nurse Practitioner Family; ATTEND Internal Medicine
DX: A41.9 Sepsis, unspecified organism (principal); G92.8 Other toxic encephalopathy; J18.9 Pneumonia, unspecified organism; J96.01 Acute respiratory failure with hypoxia; J69.0 Pneumonitis due to inhalation of food and vomit; N17.0 Acute kidney failure with tubular necrosis; I50.43 Acute on chronic combined systolic (congestive) and diastolic (congestive) heart failure; J44.0 Chronic obstructive pulmonary disease with (acute) lower respiratory infection; T86.19 Other complication of kidney transplant; E44.0 Moderate protein-calorie malnutrition; D68.9 Coagulation defect, unspecified; D68.59 Other primary thrombophilia; D84.821 Immunodeficiency due to drugs; G89.4 Chronic pain syndrome; R65.20 Severe sepsis without septic shock; M19.072 Primary osteoarthritis, left ankle and foot; M51.36 Other intervertebral disc degeneration, lumbar region; M48.061 Spinal stenosis, lumbar region without neurogenic claudication; D50.9 Iron deficiency anemia, unspecified; I25.2 Old myocardial infarction; I25.10 Atherosclerotic heart disease of native coronary artery without angina pectoris; Z95.1 Presence of aortocoronary bypass graft; Z91.199 Patient's noncompliance with other medical treatment and regimen due to unspecified reason; F17.210 Nicotine dependence, cigarettes, uncomplicated; I11.0 Hypertensive heart disease with heart failure; E11.9 Type 2 diabetes mellitus without complications; E86.0 Dehydration; M10.9 Gout, unspecified; R19.7 Diarrhea, unspecified; I71.43 Infrarenal abdominal aortic aneurysm, without rupture; R62.7 Adult failure to thrive; Z79.4 Long term (current) use of insulin; Z79.624 Long term (current) use of inhibitors of nucleotide synthesis; Z79.84 Long term (current) use of oral hypoglycemic drugs; Z79.899 Other long term (current) drug therapy; Z79.02 Long term (current) use of antithrombotics/antiplatelets; Z79.01 Long term (current) use of anticoagulants; I45.9 Conduction disorder, unspecified; Z74.09 Other reduced mobility
CPT/HCPCS: 36415; 71045; 72131; 73600; 73620; 74018; 76770; 83550; 83605; 83735; 83970; 84100; 84155; 84165; 84300; 84443; 84484; 84550; 85025; 85730; 86140; 87040; 93005; 94664; A4663; A6213; G0378; J0692; J1815; J3490; J7040; J7507; J7512; J7517; J8499